=== PATIENT | male | born 1985 | race Caucasian/White ===

== ENCOUNTER 2018-06-12 13:12 | Emergency (ER) | payer SELFPAY ==
[~2018-06-12] VITALS: Ht 180.3 cm; Wt 66.7 kg
== END 2018-06-12 14:20 | disposition home or self-care (01) ==
LOC: ER 13:12
DX: S61.412A Laceration without foreign body of left hand, initial encounter (principal); Z23 Encounter for immunization; W26.0XXA Contact with knife, initial encounter
CPT/HCPCS: 12002; 90471; 90714; 99282-25